=== PATIENT | female | born 1960 | race Caucasian/White ===

== ENCOUNTER → 2016-10-07 | Outpatient (CLI) | payer MEDICARE ==
[~2016-10-07] MED LIST: CRESTOR10 MG PO; DOSS PO; ECHINACEA80 MG PO; ELAVIL 50 MG TA50 MG PO; FLEXERIL 10 MG10 MG PO; HAIR, SKIN & N1 EACH PO; IBUPROFEN800 MG PO; METOPROLOL TART50 MG PO; MULTI-DAY VITA1 EACH PO; MULTIVITAMINS1 EAC1 PO; NORCO 10-325 T1 EACH PO; NORCO 7.5-3251 EACH PO; PERCOCET 5-3251 EACH PO; VENLAFAXINE HCL75 MG PO; ZOFRAN4 MG PO
== END ==
LOC: KOH-I 11:45
DX: M25.511 Pain in right shoulder (principal); M19.011 Primary osteoarthritis, right shoulder; M75.51 Bursitis of right shoulder
CPT/HCPCS: 73221

== ENCOUNTER → 2016-11-27 | Outpatient (CLI) | payer MEDICARE ==
[2016-11-27 10:04] LABS: HEMOGLOBIN 14.7 gm/dl (12.3-15.3); RED BLOOD COUNT 4.68 M/UL (4.00-5.10)
[2016-11-27 10:18] LABS: BUN/CREATININE RATIO 20 (0-10)
== END ==
LOC: OPSV2 09:00
PROVIDERS: Orthopaedic Surgery
DX: Z01.812 Encounter for preprocedural laboratory examination (principal); Z01.810 Encounter for preprocedural cardiovascular examination; M65.331 Trigger finger, right middle finger; G56.01 Carpal tunnel syndrome, right upper limb; Z88.0 Allergy status to penicillin
CPT/HCPCS: 36415; 80048; 81001; 85025; 93005

== ENCOUNTER → 2016-12-09 | Day surgery (SDC) | payer MEDICARE ==
[~2016-12-09] VITALS: Ht 170.2 cm; Wt 77.1 kg
[2016-12-09 06:58] LABS: HEMOGLOBIN 14.1 gm/dl (12.3-15.3); RED BLOOD COUNT 4.57 M/UL (4.00-5.10); WHITE BLOOD COUNT 9.4 K/UL (4.5-11.0)
== END | disposition home or self-care (01) ==
LOC: OR 06:15
PROVIDERS: Orthopaedic Surgery
PROC: 01N50ZZ Release Median Nerve, Open Approach (ICD-10-PCS; 2016-12-09)
PROC: 0LN70ZZ Release Right Hand Tendon, Open Approach (ICD-10-PCS; principal; 2016-12-09 07:45)
DX: M65.331 Trigger finger, right middle finger (principal); G56.01 Carpal tunnel syndrome, right upper limb; I10 Essential (primary) hypertension; E78.5 Hyperlipidemia, unspecified; M19.90 Unspecified osteoarthritis, unspecified site; Z90.49 Acquired absence of other specified parts of digestive tract; Z88.0 Allergy status to penicillin; Z79.891 Long term (current) use of opiate analgesic; Z79.899 Other long term (current) drug therapy; Z86.19 Personal history of other infectious and parasitic diseases; Z87.01 Personal history of pneumonia (recurrent); Z87.440 Personal history of urinary (tract) infections
CPT/HCPCS: 36415; 85027; J7120

== ENCOUNTER → 2021-12-18 | Outpatient (CLI) | payer MEDICARE ==
[~2021-12-18] MED LIST changes: +AMITRIPTYLINE H50 MG PO; +CRESTOR20 MG PO; +CYCLOBENZAPRINE10 MG PO; +ECHINACEA400 MG PO; +EFFEXOR XR 75 M75 MG PO; +ESTROVEN CMPLT M4 MG PO; +FISH OIL 1,2001 EAC7 PO; +HEMP OIL PO; +LOPRESSOR50 MG PO; +LOSARTAN POTASS50 MG PO; +NEURONTIN300 MG PO; +PERCOCET 5/325 T1 EA PO; +PROTONIX 40 MG40 M1 PO; +RELAFEN750 MG PO; +[UNRECOGNIZED DRUG - OTHER] PO; +[UNRECOGNIZED DRUG - REMARK] PO
== END ==
LOC: MRI 15:00
DX: M51.16 Intervertebral disc disorders with radiculopathy, lumbar region (principal); M48.061 Spinal stenosis, lumbar region without neurogenic claudication; Z98.1 Arthrodesis status
CPT/HCPCS: 36415; 72158; 82565; 84520; A9577